=== PATIENT | male | born 1980 | race American Indian/Alaskan Native ===

== ENCOUNTER 2017-03-05 09:03 | Emergency (ER) | payer OTHER ==
--- NOTE | 2017-03-05 09:44 | Emergency Department Report ---
Chief Complaint: Abdominal Pain Stated Complaint: CHEST PAIN - HPI History of Present Illness: 22-year-old male presents with complaint of intermittent sharp epigastric pain and pressure. Also states he is having pleuritic pain worse when he takes deep breath with intermittent shortness of breath. Patient is a smoker. Denies fever or chills. Decreased appetite. Has been occurring intermittently for about 2-3 weeks. - ROS Review of Systems: 2-3 weeks of central abdominal pain, pleuritic pain, - Exam Vital Signs: Vital Signs 03/05/17 09:19 Temperature 98.4 F Pulse Rate 54 L Respiratory 16 Rate Blood Pressure 115/76 O2 Sat by Pulse 100 Oximetry Physical Exam: Reproducible epigastric pain on palpation MSE screening note: Focused history and physical exam performed. Due to findings the following was ordered: Screening Assessment/Plan/Differential Dx: Epigastric pain, differential diagnosis includes pancreatitis 1- This initial assessment/diagnostic orders/clinical plan/ treatment(s) is/are subject to change based on pt's health status, clinical progression and re- assessment by fellow clinical providers in the ED. Further treatment and workup at subsequent clinical provers discretion. Patient/guardians urged not to elope from ED as their condition may be serious if not clinically assessed and managed. 2-abdominal labs, urinalysis 3-as patient complains of some pleuritic chest pain will order d-dimer as well 4-patient to be seen in the main ED ED Disposition for MSE Condition: Stable
[2017-03-05 10:19] LABS: Basophils % (Auto) 1.2 % (0.0-1.8); Eosinophils % (Auto) 5.5 % (0.0-4.3); Hematocrit 43.3 % (35.5-45.6); Hemoglobin 14.3 gm/dl (11.8-15.2); Mean Corpuscular HGB Conc 33 % (32-34); Mean Corpuscular Hemoglobin 28 pg (28-32); Mean Corpuscular Volume 84 fl (84-94); Platelet Count 331 K/mm3 (140-440); Red Blood Count 5.17 M/mm3 (3.65-5.03); Red Cell Distribution Width 13.9 % (13.2-15.2)
[2017-03-05 10:20] LABS: Bacteria,Urine 1+ /HPF (Negative); Bilirubin,Urine NEG (Negative); Blood,Urine NEG (Negative); Ketones,Urine NEG (Negative); Leukocyte Esterase,Urine NEG (Negative); Mucus,Urine 2+ /HPF; Nitrite,Urine NEG (Negative); Protein,Urine <15 mg/dL mg/dL (Negative)
[2017-03-05 10:41] LABS: Alanine Aminotransferase 12 units/L (7-56); Albumin 4.7 g/dL (3.9-5); Alkaline Phosphatase 57 units/L (35-129); Amylase 79 units/L (27-131); Anion Gap 15 mmol/L; Blood Urea Nitrogen 8 mg/dL (9-20); Calcium 9.4 mg/dL (8.4-10.2); Carbon Dioxide 29 mmol/L (22-30); Chloride 103.7 mmol/L (98-107); Creatine Kinase 197 units/L (55-170); Glucose 92 mg/dL (75-100); Potassium 4.2 mmol/L (3.6-5.0); Sodium 143 mmol/L (137-145)
[2017-03-05 10:50] LABS: Bilirubin,Direct < 0.2 mg/dL (0-0.2)
[2017-03-05 17:12] VITALS: BP 127/72
== END 2017-03-05 21:00 | disposition left against medical advice (07) ==
LOC: ED 09:03
DX: R10.13 Epigastric pain (principal); R06.02 Shortness of breath; Z53.21 Procedure and treatment not carried out due to patient leaving prior to being seen by health care provider
CPT/HCPCS: 36415; 80048; 80074; 81001; 82140; 82150; 82550; 83690; 85025; 85379